=== PATIENT | female | born 1975 | race African-American/Black ===

== ENCOUNTER 2023-04-03 10:07 | Emergency (ER) | payer OTHER ==
[2023-04-03 10:42] VITALS: RESP 18; BMI 21.9
[2023-04-03] MEDS ORDERED: LIDOCAINE 5% TOPICAL PATCH TP ONE ×3 (10:46→15:41)
[2023-04-03] MEDS ORDERED: ACETAMINOPHEN 325 MG TABLET (FP) PO ONE (10:47)
[2023-04-03] MEDS ORDERED: LIDOCAINE 5% TOPICAL PATCH ONE ×2 (11:22→15:44)
[2023-04-03] MEDS ORDERED: ACETAMINOPHEN 325 MG TABLET (FP) ONE (11:22)
[2023-04-03 15:03] VITALS: BP 169/98; PULSE 57; TEMP 98.8
[2023-04-03] MEDS ORDERED: LIDOCAINE PATCH REMOVAL MC ONE ×2 (22:00)
[2023-04-03] MEDS ORDERED: LIDOCAINE PATCH REMOVAL MC SCH (22:00)
== END 2023-04-03 15:52 | disposition home or self-care (01) ==
LOC: JER 10:07
DX: M54.9 Dorsalgia, unspecified (principal); X50.0XXA Overexertion from strenuous movement or load, initial encounter
CPT/HCPCS: 99283-25